=== PATIENT | female | born 1955 | race African-American/Black ===

== ENCOUNTER → 2020-10-27 | Outpatient (CLI) | payer MEDICARE, BC ==
--- NOTE | 2020-10-27 14:55 | KCIC ---
EXAM: Left long finger, 3 views. HISTORY: Pain. Fall. COMPARISON: None. FINDINGS: 3 views of the left lung finger are obtained. No displaced fracture is seen. There is no ra diodense foreign body. IMPRESSION: No acute osseous finding. Electronically signed by: Sylvia Luz MD (10/27/2020 2:52 PM) [id number]
== END ==
LOC: KCIC 14:09
PROVIDERS: ATTEND Internal Medicine
DX: M79.645 Pain in left finger(s) (principal)
CPT/HCPCS: 73140